=== PATIENT | female | born 1990 | race Caucasian/White ===

== ENCOUNTER 2019-03-24 09:45 | Inpatient (IN) | payer OTHER ==
[2019-03-24] MEDS ORDERED: OXYTOCIN 30 UNITS/LR 500 ML IV (12:30)
[2019-03-24] MEDS ORDERED: CARBOPROST 250 MCG INJ IM (12:30)
[2019-03-24] MEDS ORDERED: MISOPROSTOL 200 MCG TAB PR (12:30)
[2019-03-24 12:49] LABS: ADD MAN DIFF? NO
[2019-03-24 12:52] LABS: BASOPHILS % 0.6 % (0.0-2.0); EOSINOPHILS # 0.1 10^3/ul (0.0-0.5); HEMATOCRIT 47.8 % (37.0-47.0); HEMOGLOBIN 15.5 g/dl (12.0-16.0); LYMPHOCYTES # 1.1 10^3/ul (0.8-2.9); MEAN CORPUSCULAR HEMOGLOBIN 31.1 pg (29.0-33.0); MEAN CORPUSCULAR HGB CONC 32.4 g/dl (32.0-37.0); MEAN PLATELET VOLUME 11.7 fl (7.4-10.4); MONOCYTE # 0.6 10^3/ul (0.3-0.9); MONOCYTES % 9.3 % (0.0-11.0); NEUTROPHIL # 4.8 10^3/ul (1.6-7.5); NEUTROPHILS % 71.6 % (39.0-77.0); PLATELET COUNT 231 10^3/UL (140-415); RED BLOOD COUNT 4.98 10^6/ul (4.20-5.40); RED CELL DISTRIBUTION WIDTH 13.2 % (11.5-14.5)
[2019-03-24 12:52] LABS: WHITE BLOOD COUNT 6.8 10^3/ul (4.8-10.8)
[2019-03-24] MEDS: MISOPROSTOL 50 MCG CAPSULE PO ×2 (13:07→17:13)
[2019-03-24] MEDS: AMPICILLIN 2 GM/NS (PMX) 100 ML IV (13:07)
[2019-03-24] MEDS: LACTATED RINGER'S 1,000 ML IV ×2 (13:08→22:33)
[2019-03-24 13:14] LABS: INR 0.82; PROTIME 11.4 Sec (11.9-14.9); PT RATIO 0.9
[2019-03-24 13:15] LABS: PARTIAL THROMBOPLASTIN TIME 32.1 Sec (23.0-35.0)
[2019-03-24 15:12] LABS: RAPID PLASMA REAGIN NONREACTIVE (NR)
[2019-03-24] MEDS: AMPICILLIN 1 GM/NS (PMX) 50 ML IV ×2 (17:13→21:43)
[2019-03-24] MEDS: OXYTOCIN 30 UNITS/LR 500 ML IV (22:33)
[2019-03-25] MEDS: AMPICILLIN 1 GM/NS (PMX) 50 ML IV ×6 (01:38→18:07)
[2019-03-25] MEDS: LACTATED RINGER'S 1,000 ML IV ×2 (09:54→17:17)
[2019-03-25] MEDS: BUTORPHANOL 2 MG INJ IV (14:15)
[2019-03-25] MEDS: METHYLERGONOVINE 0.2 MG INJ IM (20:47)
[2019-03-25] MEDS: OXYTOCIN 30 UNITS/LR 500 ML IV ×2 (21:19)
[2019-03-25] MEDS: LIDOCAINE 1% (MPF) 30 ML INJ INJ (21:20)
[2019-03-25] MEDS: IBUPROFEN 600 MG TAB PO (22:37)
[2019-03-26] MEDS ORDERED: DIBUCAINE 1% 30 GM OINT TOP
[2019-03-26] MEDS ORDERED: MISOPROSTOL 200 MCG TAB PR
[2019-03-26] MEDS ORDERED: ACETAMINOPHEN 325 MG TAB PO
[2019-03-26] MEDS ORDERED: HYDROCODONE/APAP (5/325) TAB PO
[2019-03-26] MEDS ORDERED: METHYLERGONOVINE 0.2 MG INJ IM
[2019-03-26] MEDS ORDERED: CARBOPROST 250 MCG INJ IM
[2019-03-26] MEDS ORDERED: OXYTOCIN 30 UNITS/LR 500 ML IV
[2019-03-26] MEDS: LACTATED RINGER'S 1,000 ML IV* (01:02)
[2019-03-26] MEDS: WITCH HAZEL/GLYCERIN PAD PR (01:15)
[2019-03-26] MEDS: BENZOCAINE 20% 56 ML SPRAY TOP (01:15)
[2019-03-26] MEDS: IBUPROFEN 600 MG TAB PO ×5 (05:38→23:37)
[2019-03-26 09:15] LABS: ADD MAN DIFF? NO
[2019-03-26 09:17] LABS: WHITE BLOOD COUNT 18.5 10^3/ul (4.8-10.8)
[2019-03-26 09:17] LABS: ABNORMAL IP MESSAGE 1; BASOPHILS % 0.2 % (0.0-2.0); EOSINOPHILS # 0.1 10^3/ul (0.0-0.5); EOSINOPHILS % 0.3 % (0.0-7.0); HEMATOCRIT 30.1 % (37.0-47.0); HEMOGLOBIN 9.9 g/dl (12.0-16.0); LYMPHOCYTES # 1.4 10^3/ul (0.8-2.9); LYMPHOCYTES % 7.4 % (15.0-51.0); MEAN CORPUSCULAR HEMOGLOBIN 31.7 pg (29.0-33.0); MEAN CORPUSCULAR HGB CONC 32.9 g/dl (32.0-37.0); MEAN CORPUSCULAR VOLUME 96.5 fl (82.0-101.0); MEAN PLATELET VOLUME 11.8 fl (7.4-10.4); MONOCYTE # 2.3 10^3/ul (0.3-0.9); MONOCYTES % 12.4 % (0.0-11.0); NEUTROPHIL # 14.5 10^3/ul (1.6-7.5); NEUTROPHILS % 78.6 % (39.0-77.0); PLATELET COUNT 183 10^3/UL (140-415); POSITIVE DIFF @See below; RED BLOOD COUNT 3.12 10^6/ul (4.20-5.40); RED CELL DISTRIBUTION WIDTH 13.7 % (11.5-14.5)
[2019-03-26] MEDS: SENNA/DOCUSATE NA (8.6MG/50MG) TAB PO (21:58)
[2019-03-27] MEDS: IBUPROFEN 600 MG TAB PO ×2 (05:39→12:27)
[2019-03-27 08:38] LABS: ADD MAN DIFF? NO
[2019-03-27 08:49] LABS: BASOPHILS % 0.3 % (0.0-2.0); EOSINOPHILS # 0.2 10^3/ul (0.0-0.5); EOSINOPHILS % 1.4 % (0.0-7.0); HEMATOCRIT 28.5 % (37.0-47.0); HEMOGLOBIN 9.1 g/dl (12.0-16.0); LYMPHOCYTES # 2.1 10^3/ul (0.8-2.9); LYMPHOCYTES % 14.2 % (15.0-51.0); MEAN CORPUSCULAR HGB CONC 31.9 g/dl (32.0-37.0); MEAN CORPUSCULAR VOLUME 96.9 fl (82.0-101.0); MEAN PLATELET VOLUME 11.9 fl (7.4-10.4); MONOCYTE # 1.4 10^3/ul (0.3-0.9); MONOCYTES % 9.3 % (0.0-11.0); NEUTROPHIL # 10.4 10^3/ul (1.6-7.5); NEUTROPHILS % 70.3 % (39.0-77.0); PLATELET COUNT 182 10^3/UL (140-415); RED BLOOD COUNT 2.94 10^6/ul (4.20-5.40)
[2019-03-27 08:49] LABS: WHITE BLOOD COUNT 14.8 10^3/ul (4.8-10.8)
[2019-03-27] MEDS: DIPHTH/TET/ACEL PERTUSS (ADULT) 0.5 ML VIAL IM* (09:00)
[2019-03-27] MEDS: SENNA/DOCUSATE NA (8.6MG/50MG) TAB PO (09:36)
== END 2019-03-27 15:20 | disposition home or self-care (01) | DRG 805 ==
LOC: OBT 09:45 → L-D 09:46 → PP1 03-25 23:02 → OBT 12:11 → L-D 12:13
PROVIDERS: Obstetrics & Gynecology
PROC: 10E0XZZ Delivery of Products of Conception, External Approach (ICD-10-PCS; principal; 2019-03-24)
PROC: 0KQM0ZZ Repair Perineum Muscle, Open Approach (ICD-10-PCS; 2019-03-24)
DX: O26.62 Liver and biliary tract disorders in childbirth (principal); K83.1 Obstruction of bile duct; Z37.0 Single live birth; O99.824 Streptococcus B carrier state complicating childbirth; O70.1 Second degree perineal laceration during delivery; Z3A.38 38 weeks gestation of pregnancy
CPT/HCPCS: 76818; 85025; 85610; 85730; 86592; 86850; 86900; 86901; 99464